=== PATIENT | female | born 1970 | race Caucasian/White ===

== ENCOUNTER → 2017-02-02 | Outpatient (CLI) | payer MEDICAID ==
[~2017-02-02] MED LIST: ALBU18HF INH; AMLO5TAB2 PO; CARB200T4 PO; CLON0.5T20 PO; DOXE50CA PO; FENO145T13 PO; HYDR25TA11 PO; LEVO125T5 PO; LITH600C PO; PANT40TA5 PO; SERT50TA5 PO; TRAZ150T62 PO
== END | disposition home or self-care (01) ==
LOC: CFH 15:06
PROVIDERS: ATTEND Obstetrics & Gynecology
DX: N83.292 Other ovarian cyst, left side (principal); N83.291 Other ovarian cyst, right side
CPT/HCPCS: 76830